=== PATIENT | female | born 1975 | race Asian ===

== ENCOUNTER 2023-09-22 16:52 | Emergency (ER) | payer BC ==
[~2023-09-22] VITALS: Ht 149.9 cm; Wt 44.5 kg
[2023-09-22 17:00] VITALS: BP_SYST 162; PULSE 91; RESP 22; TEMP 98.5; O2SAT 98
[2023-09-22 17:14] LABS: BILIRUBIN,URINE NEGATIVE (NEGATIVE); BLOOD, URINE NEGATIVE (NEGATIVE); CLARITY/URINE CLEAR (CLEAR); COLOR,URINE YELLOW (YELLOW); GLUCOSE,URINE NEGATIVE (NEGATIVE); KETONES,URINE NEGATIVE (NEGATIVE); LEUKOCYTE ESTERASE ,URINE 1+ (NEGATIVE); NITRITE, URINE NEGATIVE (NEGATIVE); PROTEIN URINE NEGATIVE (NEGATIVE); UROBILINOGEN,URINE 0.2 (0.2-1.0)
[2023-09-22 17:21] LABS: BACTERIA,URINE RARE /HPF (None Seen); MUCUS,URINE None Seen /LPF (None Seen); RBC,URINE NONE SEEN /HPF (0-3)
[2023-09-22 18:17] LABS: BASOPHILS # (AUTO) 0.1 K/uL (0.0-0.2); BASOPHILS % (AUTO) 1.1 % (0.0-2.0); EOSINOPHILS # (AUTO) 0.1 K/uL (0.0-0.4); EOSINOPHILS % (AUTO) 1.7 % (0.0-4.0); HEMATOCRIT 44.2 % (36-48); HEMOGLOBIN 14.9 g/dL (12.0-16.0); LYMPHOCYTES # (AUTO) 1.9 K/uL (1.0-5.5); MEAN CORPUSCULAR HEMOGLOBIN 30 pg (27-31); MEAN CORPUSCULAR HGB CONC 34 % (32-36); MEAN CORPUSCULAR VOLUME 90 fL (79.0-98.0); MONOCYTES # (AUTO) 0.6 K/uL (0.0-1.0); MONOCYTES % (AUTO) 7.2 % (1.7-9.3); NEUTROPHILS # (AUTO) 5.3 K/uL (1.8-7.7); PLATELET COUNT (AUTO) 388 K/uL (130-430); RED BLOOD CELL COUNT(AUTO) 4.94 MIL/uL (4.2-6.2)
[2023-09-22 18:48] LABS: CALCIUM 9.1 mg/dL (8.4-11.0); CREATININE 0.51 mg/dL (0.55-1.30); POTASSIUM 4.1 mmol/L (3.5-5.1)
[2023-09-22 18:49] LABS: SERUM HCG (QUALITATIVE) NEGATIVE (NEGATIVE)
[2023-09-22] MEDS ORDERED: CIPR250T4 PO (22:54)
[2023-09-22] MEDS ORDERED: PHEN-726 PO (22:55)
[2023-09-22 23:06] VITALS: BP_SYST 149; PULSE 72; RESP 17; TEMP 98.1; O2SAT 98
== END 2023-09-22 23:06 | disposition home or self-care (01) ==
LOC: SED 16:52
DX: N39.0 Urinary tract infection, site not specified (principal); I16.0 Hypertensive urgency; R10.33 Periumbilical pain; R14.0 Abdominal distension (gaseous); Z79.899 Other long term (current) drug therapy; Z79.2 Long term (current) use of antibiotics
CPT/HCPCS: 36415; 80048; 81000; 81001; 81015; 81025; 83605; 84703; 85025; 87086; 99284